=== PATIENT | male | born 1955 | race Caucasian/White ===

== ENCOUNTER 2017-07-30 16:35 | Emergency (ER) | payer OTHER ==
[~2017-07-30] VITALS: Ht 170.2 cm; Wt 61.2 kg
[2017-07-30 16:40] VITALS: BP 94/55
== END 2017-07-30 17:00 | disposition home or self-care (01) ==
LOC: ER 16:38
DX: M25.511 Pain in right shoulder (principal)
CPT/HCPCS: 99282; A4606; Z7610

== ENCOUNTER 2017-09-25 09:59 | Emergency (ER) | payer OTHER ==
[~2017-09-25] VITALS: Ht 165.1 cm; Wt 62.1 kg
[2017-09-25 10:08] VITALS: BP 119/67
== END 2017-09-25 11:15 | disposition home or self-care (01) ==
LOC: ER 10:04
DX: M25.511 Pain in right shoulder (principal); M25.521 Pain in right elbow
CPT/HCPCS: 73030; 73080; 99284; A4606; Z7610